=== PATIENT | female | born 1990 | race African-American/Black ===

== ENCOUNTER 2016-05-05 13:52 | Emergency (ER) | payer OTHER ==
[~2016-05-05] VITALS: Ht 170.2 cm; Wt 100.0 kg
[~2016-05-05 13:52] MED LIST: DIPH25 PO; DIVA250T25 PO; DIVA500T35 PO; DOCU-119 PO; FERR-89 PO; QUET200T PO; QUET25TA PO
[2016-05-05 16:00] LABS: INFLUENZA TYPE B NEGATIVE FOR TYPE B (NEGATIVE)
[2016-05-05] MEDS ORDERED: ACETAMINOPHEN 500 MG TABLET PO ONE (16:30)
[2016-05-05] MEDS ORDERED: KETOROLAC TROMETHAMINE 30 MG/ML VIAL IVP ONE (18:00)
[2016-05-05] MEDS ORDERED: SODIUM CHLORIDE 0.9% 1,000 ML IV ONE (18:00)
[2016-05-05 18:56] VITALS: BP 134/63
== END 2016-05-05 19:02 | disposition home or self-care (01) ==
LOC: EMS 13:54
DX: J11.1 Influenza due to unidentified influenza virus with other respiratory manifestations (principal)
CPT/HCPCS: 87804; J1885; J7030; 96361; 96374; 99284

== ENCOUNTER 2016-05-16 15:54 | Emergency (ER) | payer OTHER ==
[~2016-05-16] VITALS: Ht 170.2 cm; Wt 127.0 kg
[~2016-05-16 15:54] MED LIST changes: -FERR-89 PO; +FERS325 PO
[2016-05-16 17:21] VITALS: BP 165/85
== END 2016-05-16 18:16 | disposition home or self-care (01) ==
LOC: EMS 15:55
DX: H66.92 Otitis media, unspecified, left ear (principal); F20.9 Schizophrenia, unspecified; F31.9 Bipolar disorder, unspecified
CPT/HCPCS: 99283

== ENCOUNTER 2016-06-12 15:48 | Emergency (ER) | payer OTHER ==
[~2016-06-12] VITALS: Ht 172.7 cm; Wt 90.0 kg
[2016-06-12] MEDS ORDERED: MAG HYDROX/AL HYDROX/SIMETH ES 30 ML SUSPENSION UDCUP PO ONE (18:00)
[2016-06-12] MEDS ORDERED: ACETAMINOPHEN 500 MG TABLET PO ONE (18:00)
[2016-06-12 18:21] VITALS: BP 130/81
== END 2016-06-12 18:22 | disposition home or self-care (01) ==
LOC: EMS 15:49
DX: S39.012A Strain of muscle, fascia and tendon of lower back, initial encounter (principal); K29.70 Gastritis, unspecified, without bleeding; Y93.B9 Activity, other involving muscle strengthening exercises; Y93.01 Activity, walking, marching and hiking; Y92.89 Other specified places as the place of occurrence of the external cause; Y99.8 Other external cause status
CPT/HCPCS: 99283

== ENCOUNTER 2016-07-29 11:58 | Emergency (ER) | payer OTHER ==
[~2016-07-29] VITALS: Ht 170.2 cm; Wt 90.9 kg
[~2016-07-29 11:58] MED LIST changes: +FERR-89 PO; -FERS325 PO
[2016-07-29 12:12] VITALS: BP 130/79
[2016-07-29] MEDS ORDERED: DiphenhydrAMINE HCL 25 MG CAPSULE PO ONE (12:30)
== END 2016-07-29 12:39 | disposition home or self-care (01) ==
LOC: EMS 11:59
DX: Z71.1 Person with feared health complaint in whom no diagnosis is made (principal); F31.9 Bipolar disorder, unspecified; F20.9 Schizophrenia, unspecified
CPT/HCPCS: 99282

== ENCOUNTER 2016-08-04 12:22 | Emergency (ER) | payer OTHER ==
[~2016-08-04] VITALS: Ht 170.2 cm; Wt 90.9 kg
[2016-08-04 12:31] VITALS: BP 121/89
== END 2016-08-04 13:42 | disposition home or self-care (01) ==
LOC: EMS 12:23
DX: B37.9 Candidiasis, unspecified (principal)
CPT/HCPCS: 99283

== ENCOUNTER 2017-01-20 18:30 | Emergency (ER) | payer OTHER ==
[~2017-01-20] VITALS: Ht 170.2 cm; Wt 106.8 kg
[2017-01-20] MEDS ORDERED: KETOROLAC TROMETHAMINE 60 MG/2 ML VIAL IM ONE (20:00)
[2017-01-20 20:40] VITALS: BP 110/87
== END 2017-01-20 21:09 | disposition home or self-care (01) ==
LOC: EMS 18:32
DX: J20.9 Acute bronchitis, unspecified (principal)
CPT/HCPCS: 71020; 93005; 96372; 99284; J1885

== ENCOUNTER 2017-03-14 12:42 | Emergency (ER) | payer OTHER ==
[~2017-03-14] VITALS: Ht 170.2 cm; Wt 90.9 kg
[2017-03-14 13:32] LABS: INFLUENZA TYPE A NEGATIVE FOR TYPE A (NEGATIVE); INFLUENZA TYPE B NEGATIVE FOR TYPE B (NEGATIVE); RAPID GROUP A STREP NEGATIVE (NEGATIVE)
[2017-03-14] MEDS ORDERED: IBUPROFEN 800 MG TABLET PO ONE (14:15)
[2017-03-14 15:26] VITALS: BP_DIAS 75
[2017-03-14 15:43] VITALS: BP_SYST 120
== END 2017-03-14 15:49 | disposition home or self-care (01) ==
LOC: EMS 12:43
DX: J06.9 Acute upper respiratory infection, unspecified (principal); J02.9 Acute pharyngitis, unspecified; F31.9 Bipolar disorder, unspecified; F20.9 Schizophrenia, unspecified; Z79.899 Other long term (current) drug therapy
CPT/HCPCS: 71046; 87430; 87804; 99285

== ENCOUNTER 2017-05-16 15:39 | Emergency (ER) | payer OTHER ==
[~2017-05-16] VITALS: Ht 170.2 cm; Wt 100.0 kg
[2017-05-16] MEDS ORDERED: SODIUM CHLORIDE 0.9% 1,000 ML IV ONE (16:00)
[2017-05-16] MEDS ORDERED: ONDANSETRON HCL 4 MG/2 ML VIAL IVP ONE (16:00)
[2017-05-16] MEDS ORDERED: KETOROLAC TROMETHAMINE 30 MG/ML VIAL IVP ONE (16:00)
[2017-05-16 16:34] LABS: BASOPHILS % (AUTO) 0.7 % (0.0-2.0); EOSINOPHILS % (AUTO) 0.5 % (1.0-6.0); HEMATOCRIT 40.4 % (36-46); HEMOGLOBIN 13.5 g/dL (12.0-16.0); LYMPHOCYTES # (AUTO) 1.5 K/uL (1.0-4.8); LYMPHOCYTES % (AUTO) 40.3 % (22.0-44.0); MEAN CORPUSCULAR HEMOGLOBIN 30.3 pg (26.0-34.0); MEAN CORPUSCULAR HGB CONC 33.4 G/dL (31.0-37.0); MEAN CORPUSCULAR VOLUME 91 fL (80-100); MONOCYTES # (AUTO) 0.4 K/uL (0.1-1.0); MONOCYTES % (AUTO) 11.7 % (2.0-9.0); NEUTROPHILS # (AUTO) 1.8 K/uL (1.8-7.7); NEUTROPHILS % (AUTO) 46.8 % (40.0-70.0); PLATELET COUNT (AUTO) 247 K/uL (150-450); RED BLOOD CELL COUNT(AUTO) 4.46 MIL/uL (4.00-5.20); RED CELL DISTRIBUTION WIDTH 13.3 % (11.5-14.5)
[2017-05-16 16:37] LABS: ANION GAP 7 mmol/L (8-16); CALCIUM, TOTAL 8.9 mg/dL (8.8-10.5); CARBON DIOXIDE 27 mmol/L (22-29); CHLORIDE 104 mmol/L (98-107); CREATININE 0.71 mg/dL (0.60-1.30); GLOMERULAR FILTR. RATE CALC > 60 mL/min (>60); GLUCOSE,RANDOM 83 mg/dL (70-110); POTASSIUM 3.8 mmol/L (3.5-5.1); SODIUM SERUM 138 mmol/L (136-145); UREA NITROGEN, BLOOD 8 mg/dL (7-18)
[2017-05-16 16:45] LABS: ALANINE AMINOTRANSFERASE 19 U/L (12-78); ALBUMIN 3.7 g/dL (3.4-5.0); ALKALINE PHOSPHATASE 84 U/L (46-116); ASPARTATE AMINOTRANSFERASE 19 U/L (15-37); BILIRUBIN,TOTAL 0.2 mg/dL (0.1-1.0); LIPASE 80 U/L (73-393); TOTAL PROTEIN, SERUM 8.1 g/dL (6.4-8.2)
[2017-05-16 17:00] LABS: APPEARANCE,URINE CLEAR (CLEAR); BILIRUBIN,URINE NEGATIVE (NEGATIVE); GLUCOSE, URINE (UA) NEGATIVE (NEGATIVE); KETONES,URINE NEGATIVE (NEGATIVE); LEUKOCYTE ESTERASE ,URINE MODERATE (NEGATIVE); NITRATE,URINE NEGATIVE (NEGATIVE); OCCULT BLOOD,URINE TRACE (NEGATIVE); PROTEIN,URINE NEGATIVE (NEGATIVE)
[2017-05-16 17:13] LABS: RBC,URINE 0-2 /HPF (0-2)
[2017-05-16 17:14] LABS: BACTERIA,URINE Few /HPF (None Seen); SQUAMOUS EPITHELIAL CELL,UR Few /LPF (None Seen)
[2017-05-16 17:57] VITALS: BP 123/51
== END 2017-05-16 17:59 | disposition home or self-care (01) ==
LOC: EMS 15:40
DX: N39.0 Urinary tract infection, site not specified (principal)
CPT/HCPCS: 36415; 80053; 81001; 83690; 84703; 85025; 87086; 96361; 96374; 96375; 99284; J1885; J2405; J7030

== ENCOUNTER 2017-12-05 15:45 | Emergency (ER) | payer OTHER ==
[~2017-12-05] VITALS: Ht 170.2 cm; Wt 106.8 kg
[~2017-12-05 15:45] MED LIST changes: +DIVA-76 PO; +DIVA-78 PO; -DIVA250T25 PO; -DIVA500T35 PO
[2017-12-05] MEDS ORDERED: IBUPROFEN 800 MG TABLET PO ONE (19:15)
[2017-12-05 21:00] VITALS: BP 141/83
== END 2017-12-05 21:26 | disposition home or self-care (01) ==
LOC: EMS 15:46
DX: M22.2X1 Patellofemoral disorders, right knee (principal); F31.9 Bipolar disorder, unspecified; F20.9 Schizophrenia, unspecified; F41.9 Anxiety disorder, unspecified; Z79.899 Other long term (current) drug therapy
CPT/HCPCS: 99284

== ENCOUNTER 2018-09-15 12:04 | Emergency (ER) | payer OTHER ==
[~2018-09-15] VITALS: Ht 170.2 cm; Wt 120.0 kg
[2018-09-15 12:31] VITALS: BP 130/60
== END 2018-09-15 12:37 | disposition home or self-care (01) ==
LOC: EMS 12:04
DX: L25.9 Unspecified contact dermatitis, unspecified cause (principal); F41.9 Anxiety disorder, unspecified; F31.9 Bipolar disorder, unspecified; F20.9 Schizophrenia, unspecified; Z90.49 Acquired absence of other specified parts of digestive tract

== ENCOUNTER 2018-12-07 19:54 | Emergency (ER) | payer OTHER | END 2018-12-07 20:20 | disposition left against medical advice (07) | LOC: EMS 19:55 | DX: R06.02 Shortness of breath (principal); Z53.21 Procedure and treatment not carried out due to patient leaving prior to being seen by health care provider ==

== ENCOUNTER 2019-01-03 08:10 | Emergency (ER) | payer OTHER ==
[~2019-01-03] VITALS: Ht 170.2 cm; Wt 100.0 kg
[2019-01-03 09:58] VITALS: BP 111/57
== END 2019-01-03 10:05 | disposition home or self-care (01) ==
LOC: EMS 08:11
DX: J20.9 Acute bronchitis, unspecified (principal); F31.9 Bipolar disorder, unspecified; F41.9 Anxiety disorder, unspecified; Z90.49 Acquired absence of other specified parts of digestive tract; Z79.899 Other long term (current) drug therapy

== ENCOUNTER 2019-11-05 08:17 | Emergency (ER) | payer OTHER ==
[~2019-11-05] VITALS: Ht 170.2 cm; Wt 107.3 kg
[~2019-11-05 08:17] MED LIST changes: -DIPH25 PO; +DIVA-111 PO; +DIVA-112 PO; -DIVA-76 PO; -DIVA-78 PO; -DOCU-119 PO; -FERR-89 PO; -QUET25TA PO
[2019-11-05] MEDS ORDERED: SERT50TA12 PO (08:27)
[2019-11-05] MEDS ORDERED: DIPH25CA85 PO (08:27)
[2019-11-05 10:22] VITALS: BP 118/68
== END 2019-11-05 11:15 | disposition home or self-care (01) ==
LOC: EMS 08:18
DX: R60.0 Localized edema (principal); F41.9 Anxiety disorder, unspecified; F31.9 Bipolar disorder, unspecified; F20.9 Schizophrenia, unspecified; Z90.89 Acquired absence of other organs
CPT/HCPCS: 93971; Z7502

== ENCOUNTER 2021-04-23 20:14 | Emergency (ER) | payer OTHER ==
[~2021-04-23] VITALS: Ht 170.2 cm; Wt 104.5 kg
[~2021-04-23 20:14] MED LIST changes: +DIPH25CA85 PO; +SERT-158 PO
[2021-04-23 21:41] LABS: BASOPHILS % (AUTO) 0.8 % (0.0-2.0); EOSINOPHILS % (AUTO) 0.3 % (1.0-6.0); HEMOGLOBIN 13.2 g/dL (12.0-16.0); LYMPHOCYTES # (AUTO) 0.5 K/uL (1.0-4.8); LYMPHOCYTES % (AUTO) 11.9 % (22.0-44.0); MEAN CORPUSCULAR HEMOGLOBIN 29.8 pg (26.0-34.0); MEAN CORPUSCULAR HGB CONC 33.7 G/dL (31.0-37.0); MEAN CORPUSCULAR VOLUME 88 fL (80-100); MONOCYTES # (AUTO) 0.4 K/uL (0.1-1.0); MONOCYTES % (AUTO) 10.4 % (2.0-9.0); NEUTROPHILS # (AUTO) 3.1 K/uL (1.8-7.7); NEUTROPHILS % (AUTO) 76.6 % (40.0-70.0); PLATELET COUNT (AUTO) 238 K/uL (150-450); RED BLOOD CELL COUNT(AUTO) 4.42 MIL/uL (4.00-5.20); RED CELL DISTRIBUTION WIDTH 13.3 % (11.5-14.5)
[2021-04-23] MEDS ORDERED: DICYCLOMINE HCL 20 MG TABLET PO ONE (21:45)
[2021-04-23 21:51] LABS: ANION GAP 14 mmol/L (8-16); CALCIUM, TOTAL 8.8 mg/dL (8.8-10.5); CARBON DIOXIDE 21 mmol/L (22-29); CHLORIDE 102 mmol/L (98-107); CREATININE 0.72 mg/dL (0.60-1.30); GLOMERULAR FILTR. RATE CALC > 60 mL/min (>60); GLUCOSE,RANDOM 101 mg/dL (70-110); POTASSIUM 3.4 mmol/L (3.5-5.1); SODIUM SERUM 137 mmol/L (136-145); UREA NITROGEN, BLOOD 12 mg/dL (7-18)
[2021-04-23 21:53] LABS: APPEARANCE,URINE CLEAR (CLEAR); BILIRUBIN,URINE NEGATIVE (NEGATIVE); GLUCOSE, URINE (UA) NEGATIVE (NEGATIVE); KETONES,URINE 40-60 mg/dL (NEGATIVE); LEUKOCYTE ESTERASE ,URINE NEGATIVE Leu/uL (NEGATIVE); NITRATE,URINE NEGATIVE (NEGATIVE); OCCULT BLOOD,URINE NEGATIVE (NEGATIVE); PROTEIN,URINE 30-70 (NEGATIVE); SPECIFIC GRAVITIY, URINE 1.043 (1.003-1.030); UROBILINOGEN,URINE <=1.0 mg/dL (<=1.0)
[2021-04-23 22:00] LABS: BACTERIA,URINE None Seen /HPF (None Seen); MUCUS,URINE Few LPF (None Seen); RBC,URINE 0-2 /HPF (0-2); SQUAMOUS EPITHELIAL CELL,UR Few /LPF (None Seen); WBC,URINE 0-2 /HPF (0-5)
[2021-04-23 22:03] LABS: ALANINE AMINOTRANSFERASE 27 U/L (12-78); ALBUMIN 3.6 g/dL (3.4-5.0); ALKALINE PHOSPHATASE 64 U/L (46-116); ASPARTATE AMINOTRANSFERASE 25 U/L (15-37); BILIRUBIN,TOTAL 0.3 mg/dL (0.1-1.0); HCG,QUANTITATIVE < 1 mIU/mL (0-6); LIPASE 33 U/L (73-393); TOTAL PROTEIN, SERUM 8.2 g/dL (6.4-8.2)
[2021-04-23] MEDS ORDERED: IOHEXOL 350 MG/ML 150 ML VIAL ONE (23:14)
[2021-04-24] MEDS ORDERED: DICY20TA2 PO (01:48)
[2021-04-24 02:00] VITALS: BP 140/77
== END 2021-04-24 04:26 | disposition home or self-care (01) ==
LOC: EMS 20:15
DX: K52.9 Noninfective gastroenteritis and colitis, unspecified (principal); F31.9 Bipolar disorder, unspecified; F41.9 Anxiety disorder, unspecified; F20.9 Schizophrenia, unspecified; Z79.899 Other long term (current) drug therapy
CPT/HCPCS: 36415; 74177; 80053; 81001; 83690; 84702; 85025; 99285; Q9967

== ENCOUNTER 2021-07-31 14:56 | Emergency (ER) | payer OTHER ==
[~2021-07-31] VITALS: Ht 170.2 cm; Wt 106.4 kg
[~2021-07-31 14:56] MED LIST changes: +DICY20TA95 PO; -DIPH25CA85 PO; -DIVA-111 PO; -SERT-158 PO
[2021-07-31] MEDS ORDERED: KETOROLAC TROMETHAMINE 30 MG/ML VIAL IM ONE (18:00)
[2021-07-31] MEDS ORDERED: MAG HYDROX/AL HYDROX/SIMETH 30 ML SUSP UDCUP PO ONE (18:00)
[2021-07-31] MEDS ORDERED: FAMOTIDINE 20 MG TABLET PO ONE (18:00)
[2021-07-31 19:23] LABS: BASOPHILS % (AUTO) 0.9 % (0.0-2.0); EOSINOPHILS % (AUTO) 0.3 % (1.0-6.0); HEMATOCRIT 36.2 % (36-46); HEMOGLOBIN 12.1 g/dL (12.0-16.0); LYMPHOCYTES # (AUTO) 1.7 K/uL (1.0-4.8); MEAN CORPUSCULAR HEMOGLOBIN 29.6 pg (26.0-34.0); MEAN CORPUSCULAR HGB CONC 33.4 G/dL (31.0-37.0); MEAN CORPUSCULAR VOLUME 89 fL (80-100); MONOCYTES # (AUTO) 0.8 K/uL (0.1-1.0); MONOCYTES % (AUTO) 9.1 % (2.0-9.0); NEUTROPHILS # (AUTO) 5.9 K/uL (1.8-7.7); NEUTROPHILS % (AUTO) 69.7 % (40.0-70.0); PLATELET COUNT (AUTO) 244 K/uL (150-450); RED BLOOD CELL COUNT(AUTO) 4.07 MIL/uL (4.00-5.20); RED CELL DISTRIBUTION WIDTH 14.7 % (11.5-14.5)
[2021-07-31 19:33] LABS: ANION GAP 9 mmol/L (8-16); CALCIUM, TOTAL 9.1 mg/dL (8.8-10.5); CARBON DIOXIDE 24 mmol/L (22-29); CHLORIDE 102 mmol/L (98-107); CREATININE 0.75 mg/dL (0.60-1.30); GLOMERULAR FILTR. RATE CALC > 60 mL/min (>60); GLUCOSE,RANDOM 107 mg/dL (70-110); POTASSIUM 4.1 mmol/L (3.5-5.1); SODIUM SERUM 135 mmol/L (136-145); UREA NITROGEN, BLOOD 11 mg/dL (7-18)
[2021-07-31 19:48] LABS: ALANINE AMINOTRANSFERASE 90 U/L (12-78); ALKALINE PHOSPHATASE 74 U/L (46-116); ASPARTATE AMINOTRANSFERASE 34 U/L (15-37); BILIRUBIN,TOTAL 0.2 mg/dL (0.1-1.0); HCG,QUANTITATIVE < 1 mIU/mL (0-6); LIPASE 329 U/L (73-393); TOTAL PROTEIN, SERUM 7.8 g/dL (6.4-8.2)
[2021-07-31 20:25] VITALS: BP 124/74
== END 2021-07-31 20:30 | disposition home or self-care (01) ==
LOC: EMS 14:57
DX: R10.13 Epigastric pain (principal); F41.9 Anxiety disorder, unspecified; F31.9 Bipolar disorder, unspecified; F20.9 Schizophrenia, unspecified; Z90.49 Acquired absence of other specified parts of digestive tract; Z98.890 Other specified postprocedural states
CPT/HCPCS: 36415; 80053; 83690; 84484; 84702; 85025; 96372; 99283; J1885

== ENCOUNTER 2021-10-28 10:14 | Emergency (ER) | payer OTHER ==
[~2021-10-28] VITALS: Ht 170.2 cm; Wt 109.1 kg
[2021-10-28 12:23] VITALS: BP 138/81
[2021-10-28 12:23] LABS: COVID AG,FIA SOURCE NASAL SWAB
[2021-10-28] MEDS ORDERED: DIVA-80 PO (12:23)
[2021-10-28] MEDS ORDERED: BENZ-70 PO (13:29)
[2021-10-28] MEDS ORDERED: AZIT250T9 PO ×2 (13:29→13:53)
[2021-10-28] MEDS ORDERED: BENZ-39 PO (13:53)
== END 2021-10-28 14:02 | disposition home or self-care (01) ==
LOC: EMS 10:18
DX: J40 Bronchitis, not specified as acute or chronic (principal); J06.9 Acute upper respiratory infection, unspecified; F41.9 Anxiety disorder, unspecified; F31.9 Bipolar disorder, unspecified; F20.9 Schizophrenia, unspecified; Z90.49 Acquired absence of other specified parts of digestive tract; Z98.890 Other specified postprocedural states; Z20.822 Contact with and (suspected) exposure to COVID-19
CPT/HCPCS: 87430; 99283